=== PATIENT | female | born 1980 | race Hispanic/Latino ===

== ENCOUNTER 2020-08-16 12:43 | Emergency (ER) | payer SELFPAY ==
[2020-08-16 14:21] LABS: #Basophils 0.1 thou/uL (0.0-0.2); #Eosinphils 0.1 thou/uL (0.0-0.7); #Monocytes 0.4 thou/uL (0.11-0.59); #Neutrophils 3.4 thou/uL (1.40-6.50); %Basophils 0.8 % (0.0-1.0); %Lymphocytes 43.4 % (21.0-51.0); %Monocytes 6.1 % (0.0-10.0); %Neutrophils 48.7 % (42.0-75.0); Hemoglobin 13.8 g/dL (12.0-16.0); Mean Corpuscular HGB CONC 33.7 g/dL (32.0-36.0); Mean Corpuscular Hemoglobin 30.7 pg (27.0-31.0); Mean Corpuscular Volume 90.9 fL (78.0-98.0); Mean Platelet Volume 8.9 fL (7.4-10.4); Platelet Count 174 thou/uL (130-400); RBC Distribution Width 11.8 % (11.5-14.5); Red Blood Cell (RBC) Count 4.48 mill/uL (4.20-5.40)
--- NOTE | 2020-08-16 14:58 | ULT ---
TRANSABDOMINAL TRANSVAGINAL PELVIC ULTRASOUND DATE:: 08/16/2020 2:00 PM CLINICAL HISTORY: with vaginal bleeding. COMPARISON: None. TECHNIQUE: Grayscale, color Doppler and spectral Doppler images were obtained of the pelvis utilizing a transabdominal and transvaginal approach FINDINGS: UTERUS: Size: 7.4 x 2.8 x 4.6 Mass: None Cervix: Small nabothian cysts within the cervix Endometrial Thickness: Not applicable. Small oval cystic collection is seen within the endometrial ca nal suspicious for a small gestational sac measuring 3 x 5 mm. The mean sac diameter is 0.28 cm given estimated gestational age of 5 weeks and 0 days. Estimated due date is April 18, 2021 RIGHT OVARY: 3.0 x 1.8 cm. Mass: None. Flow: Normal LEFT OVARY: 1.5 x 2.3 x 1.7 cm. Mass: None. Flow: Normal CUL-DE-SAC: Minimal free fluid IMPRESSION: 1. Findings consistent with of undetermined location. There is a small sac present within t he endometrial canal suspicious for an early intrauterine gestation; however, pseudogestational sac related to ectopic is not excluded. Continued clinical and sonographic follow-up is recomme nded. 2. Nabothian cysts of the cervix.
[2020-08-16 15:24] LABS: Bacteria/HPF None Seen HPF (None Seen); Bilirubin Negative (Negative); Blood, Urine 1+ (Negative); Clarity Extra Turbid (Clear); Glucose, Urine (Dipstick) Normal (Negative); Ketone, Urine Negative (Negative); Leukocyte Negative Leu/uL (Negative); Nitrite Negative (Negative); Protein, Urine (Dipstick) Negative (Neg-Trace); RBC/HPF 0-3 HPF (0-3); Squamous Epithelial 0-3 HPF (0-3); Urobilinogen Normal mg/dL (Less than 2); WBC/HPF None Seen HPF (0-3)
== END 2020-08-16 15:42 | disposition home or self-care (01) ==
LOC: ERS 12:43
DX: O09.512 Supervision of elderly primigravida, second trimester (principal); O20.0 Threatened abortion; Z3A.15 15 weeks gestation of pregnancy
CPT/HCPCS: 36415; 76856; 81003; 81015; 84702; 85025; 86900; 86901

== ENCOUNTER 2021-07-14 06:50 | Emergency (ER) | payer SELFPAY ==
[2021-07-14 08:36] LABS: #Eosinphils 0.1 thou/uL (0.0-0.7); #Lymphocytes 1.9 thou/uL (1.20-3.40); #Monocytes 0.4 thou/uL (0.11-0.59); #Neutrophils 4.1 thou/uL (1.40-6.50); %Basophils 0.4 % (0.0-1.0); %Eosinophils 0.9 % (0.0-10.0); %Lymphocytes 29.9 % (21.0-51.0); %Monocytes 5.3 % (0.0-10.0); %Neutrophils 63.5 % (42.0-75.0); Hemoglobin 13.2 g/dL (12.0-16.0); Mean Corpuscular HGB CONC 34.2 g/dL (32.0-36.0); Mean Corpuscular Hemoglobin 30.9 pg (27.0-31.0); Mean Corpuscular Volume 90.3 fL (78.0-98.0); Mean Platelet Volume 10.3 fL (7.4-10.4); Platelet Count 120 thou/uL (130-400); RBC Distribution Width 12.2 % (11.5-14.5); Red Blood Cell (RBC) Count 4.28 mill/uL (4.20-5.40); White Blood Cell (WBC) Count 6.5 thou/uL (4.8-10.8)
[2021-07-14 08:51] LABS: ALT (SGPT) 20 U/L (8-55); AST (SGOT) 20 U/L (5-34); Albumin 3.2 g/dL (3.5-5.0); Alkaline Phosphatase 121 U/L (40-110); Anion Gap 12 mmol/L (10-20); BUN (Urea Nitrogen) 8 mg/dL (7.0-18.7); Bilirubin, Total 0.4 mg/dL (0.2-1.2); Calc. Creatinine Clearance 0 mL/min (70-130); Calcium 9.2 mg/dL (7.8-10.44); Carbon Dioxide 20 mmol/L (22-29); Chloride 109 mmol/L (98-107); Globulin 3.5 g/dL (2.4-3.5); Glucose 91 mg/dL (70-105); Potassium 3.6 mmol/L (3.5-5.1); Protein, Total 6.7 g/dL (6.0-8.3); Sodium 137 mmol/L (136-145)
[2021-07-14 09:39] LABS: Bilirubin Negative (Negative); Blood, Urine Negative (Negative); Clarity Clear (Clear); Glucose, Urine (Dipstick) Normal (Negative); Ketone, Urine Trace mg/dL (Negative); Leukocyte Negative Leu/uL (Negative); Nitrite Negative (Negative); Protein, Urine (Dipstick) 10 mg/dL (Neg-Trace); Specific Gravity, Urine 1.009 (1.002-1.036); Urobilinogen Normal mg/dL (Less than 2)
== END 2021-07-14 09:05 | disposition short-term general hospital (02) ==
LOC: ERS 06:50
DX: O41.03X0 Oligohydramnios, third trimester, not applicable or unspecified (principal); Z3A.32 32 weeks gestation of pregnancy
CPT/HCPCS: 36415; 76815; 80053; 81003; 85025